=== PATIENT | male | born 2000 | race Caucasian/White ===

== ENCOUNTER 2019-08-22 16:53 | Emergency (ER) | payer SELFPAY ==
[~2019-08-22] VITALS: Ht 167.6 cm; Wt 69.9 kg
[2019-08-22 17:00] VITALS: BP_SYST 134
[2019-08-22] MEDS ORDERED: IBUPROFEN 800 MG TABLET ONE (17:48)
--- NOTE | 2019-08-22 20:00 | NUR ---
Patient to ER h1 for evaluation. Side rails up.
--- NOTE | 2019-08-22 20:02 | NUR ---
ER DWIGHT Hill at bedside examining patient.
--- NOTE | 2019-08-22 20:05 | NUR ---
Pt AAOx4 ambulated into ED c/o flu like symptoms including productive cough, headache, 101F, bodyaches. No other injuries/complaints per pt/noted. Will continue to monitor.
[2019-08-22 20:15] VITALS: BP_SYST 128
--- NOTE | 2019-08-22 20:17 | NUR ---
Patient given written and verbal discharge instructions and verbalizes understanding. ER MIR[employer] POLISHER Liz discussed with patient the results and treatment provided. Patient in stable condition. ID arm band removed. Rx of Motrin, Zofran, Tylenol given. Patient educated on pain management and to follow up with PMD. Pain Scale 0. Opportunity for questions provided and answered. Medication side effect fact sheet provided.
== END 2019-08-22 20:15 | disposition home or self-care (01) ==
LOC: SED 16:53
DX: J10.1 Influenza due to other identified influenza virus with other respiratory manifestations (principal); R03.0 Elevated blood-pressure reading, without diagnosis of hypertension; J45.909 Unspecified asthma, uncomplicated
CPT/HCPCS: 36415; 86710; 99283